=== PATIENT | male | born 1990 | race Caucasian/White ===

== ENCOUNTER 2020-01-20 18:49 | Emergency (ER) | payer BC, OTHER ==
[~2020-01-20] VITALS: Ht 160 cm; Wt 74.3 kg
--- OUTSIDE RECORDS SUMMARY | 2020-01-20 18:55 | XMS REPORT | Continuity of Care Document ---
Author Organization Unknown Address Unknown Phone Unavailable Allergies There is no data. Medications There is no data. Problems There is no data. Procedures There is no data. Results There is no data. Encounters ACCT No. Visit Date/Time Discharge Status Pt. Type Provider Facility Loc./Unit Complaint [id number] 01/09/2020 11:40:00 01/09/2020 23:59:5 9 CLS Outpatient SHARRON PERDOMO [facility]
[2020-01-20] MEDS ORDERED: RT-ALBUINH IH (19:10)
[2020-01-20] MEDS ORDERED: PRD20T PO (19:10)
--- NOTE | 2020-01-20 19:10 | ED Cough/URI ---
General Chief Complaint: Cough/Cold/Flu Symptoms Stated Complaint: COUGH Nursing Triage Note: Pt complaining of a cough that has been going on for a couple of weeks. Pt took Augmentin and finished it about a week ago. Sepsis Screen: No Definite Risk Source: patient Exam Limitations: no limitations History of Present Illness Date Seen by Provider: Jan 20, 2020 Time Seen by Provider: 19:00 Initial Comments coughing for 2.5 weeks, no fever, no body aches or chills. No recent travel or known exposure to anyone w Covid. Non-smoker, no Hx lung disease. Saw PCP 2 wks ago and given Rx for Amox w no effect, then seen again a wk later at outside clinic and given reassurance. Now, no worse, but still w occasional productive cough, only in the morning and sometimes coughs himself to sleep. Denies chest tightness or soa. Overall, improving. Allergies and Home Medications Home Medications Albuterol Sulfate 1 Puff Puff, 2 PUFF IH Q4H 1 PUFF = 90 MCG Prescribed by: RAGHAV LAZAR on 01/20/201909 Prednisone 20 Mg Tab, 40 MG PO am Prescribed by: RAGHAV LAZAR on 01/20/201909 Patient Home Medication List Home Medication List Reviewed: Yes Review of Systems Review of Systems Constitutional: see HPI; No chills, No diaphoresis, No dizziness, No fever, No malaise, No weakness EENTM: nose congestion (resolved); No ear pain, No throat pain Respiratory: see HPI, cough; No short of breath, No stridor, No wheezing Cardiovascular: see HPI; No chest pain Gastrointestinal: No abdominal pain, No loss of appetite, No nausea, No vomiting Musculoskeletal: No back pain, No joint pain Skin: No change in color, No rash Past Nefasef-Rqpluf-Tlovvz Hx Patient Social History Alcohol Use: Denies Use Recreational Drug Use: No Smoking Status: Never a Smoker 2nd Hand Smoke Exposure: No Recent Foreign Travel: No Contact w/Someone Who Travel: No Recent Infectious Disease Expo: No Recent Hopitalizations: No Physical Abuse: No Sexual Abuse: No Past Medical History Surgeries: Yes Orthopedic Respiratory: No Cardiac: No Neurological: No Genitourinary: No Gastrointestinal: No Musculoskeletal: No Endocrine: No HEENT: No Cancer: No Psychosocial: No Integumentary: No Physical Exam Vital Signs - First Documented 01/20/20 18:55 Temp 36.4 Pulse 87 Resp 16 B/P (MAP) 143/104 (117) Pulse Ox 98 O2 Delivery Room Air Capillary Refill : Less Than 3 Seconds Height: '" Weight: lbs. oz. kg; 29.00 BMI Method: General Appearance: WD/WN, no apparent distress HEENT: PERRL/EOMI, normal ENT inspection, TMs normal, pharynx normal Neck: non-tender, full range of motion, supple, normal inspection, carotid bruit Respiratory: chest non-tender, lungs clear, normal breath sounds Cardiovascular: regular rate, rhythm, no edema, no gallop Neurologic/Psychiatric: alert, normal mood/affect, oriented x 3 Skin: normal color, warm/dry Lymphatic: no adenopathy Progress/Results/Core Measures Suspected Sepsis Recent Fever Within 48 Hours: No Infection Criteria Present: None New/Unexplained Altered Menta: No Sepsis Screen: No Definite Risk SIRS Temperature: Pulse: 87 Respiratory Rate: 16 Blood Pressure 143 /104 Mean: 117 Results/Orders Vital Signs/I&O 01/20/20 18:55 Temp 36.4 Pulse 87 Resp 16 B/P (MAP) 143/104 (117) Pulse Ox 98 O2 Delivery Room Air Capillary Refill : Less Than 3 Seconds Blood Pressure Mean: 117 Departure Impression Primary Impression: Bronchitis Disposition: 01 HOME, SELF-CARE Condition: Stable Departure-Patient Inst. Decision time for Depature: 19:08 Patient Instructions: Acute Bronchitis, Adult (DC) Scripts Albuterol Sulfate (PROAIR HFA) 1 Puff Puff 2 PUFF IH Q4H, #1 PUFF 1 PUFF = 90 MCG Prov: RAGHAV LAZAR DO 01/20/20 Prednisone (Prednisone) 20 Mg Tab 40 MG PO am, #8 TAB 0 Refills Prov: RAGHAV LAZAR DO 01/20/20 RAGHAV LAZAR DO Jan 20, 2020 19:10
[2020-01-20 19:13] VITALS: BP 143/104
== END 2020-01-20 19:13 | disposition home or self-care (01) ==
LOC: ER FS 18:52
DX: J40 Bronchitis, not specified as acute or chronic (principal)
CPT/HCPCS: 99282

== ENCOUNTER 2020-01-29 14:59 | Emergency (ER) | payer BC ==
[~2020-01-29] VITALS: Ht 160 cm; Wt 72.7 kg
[~2020-01-29 14:59] MED LIST: PRD20T PO; RT-ALBUINH IH
--- OUTSIDE RECORDS SUMMARY | 2020-01-29 15:57 | XMS REPORT | Continuity of Care Document ---
Author Organization Unknown Address Unknown Phone Unavailable Allergies There is no data. Medications There is no data. Problems Date Dx Coded Attending Type Code Diagnosis Diagnosed By 01/23/2020 RAGHAV LAZAR DO Ot J40 BRONCHITIS, NOT SPECIFIED ACUTE OR CH 01/23/2020 ROVENSTINE DORAGHAV Ot R05 COUGH 01/23/2020 ROVENSTINE RAGHAV ALANIZ Ot J40 BRONCHITIS, NOT SPECIFIED ACUTE OR CH 01/23/2020 ROVENSTINE DO, RAGHAV Lewis Ot R05 COUGH Procedures There is no data. Results There is no data. Encounters ACCT No. Visit Date/Time Discharge Status Pt. Type Provider Facility Loc./Unit Complaint [id number] 01/09/2020 11:40:00 01/09/2020 23:59:5 9 C[facility] [id number] 01/20/2020 18:52:00 020 19:13:00 DIS Outpatient RAGHAV LAZAR DO Via [facility] ER FS COUGH [id number] 01/29/2020 15:00:[address] Emergency MARIBEL CRUZ DO Via [facility] ER FS FEVER; COUGH
--- NOTE | 2020-01-29 16:00 | ED Cough/URI ---
General Stated Complaint: FEVER; COUGH Source: patient Exam Limitations: no limitations History of Present Illness Date Seen by Provider: Jan 29, 2020 Time Seen by Provider: 15:55 Initial Comments 29-year-old male presents with fever, cough. Patient reports he got a fever today. His measured fever at the ER is 99.9. Along with cough. Patient reports that the cough to start today. However patient was seen by me about 9 days ago with similar symptoms. Patient did not have any chest pain, no shortness of breath no nausea vomiting diarrhea or any other systemic complaints. Patient is worried about "a virus going around" Allergies and Home Medications Allergies Coded Allergies: No Known Drug Allergies (Unverified , 01/29/20) Home Medications Albuterol Sulfate 1 Puff Puff, 2 PUFF IH Q4H 1 PUFF = 90 MCG Prescribed by: RAGHAV LAZAR on 01/20/201909 Prednisone 20 Mg Tab, 40 MG PO am Prescribed by: RAGHAV LAZAR on 01/20/201909 Patient Home Medication List Home Medication List Reviewed: Yes Review of Systems Review of Systems Constitutional: fever Respiratory: cough; No short of breath Cardiovascular: No chest pain Gastrointestinal: no symptoms reported Musculoskeletal: no symptoms reported Skin: no symptoms reported Psychiatric/Neurological: No Symptoms Reported Past Idfvcxf-Djivyb-Vkrukw Hx Past Med/Social Hx: Reviewed Nursing Past Med/Soc Hx Patient Social History 2nd Hand Smoke Exposure: No Recent Foreign Travel: No Contact w/Someone Who Travel: No Recent Hopitalizations: No Past Medical History Surgeries: Yes Orthopedic Respiratory: No Cardiac: No Neurological: No Genitourinary: No Gastrointestinal: No Musculoskeletal: No Endocrine: No HEENT: No Cancer: No Psychosocial: No Integumentary: No Physical Exam Vital Signs - First Documented 01/29/20 16:05 Temp 37.5 Pulse 119 Resp 20 B/P (MAP) 142/97 (112) Pulse Ox 98 O2 Delivery Room Air Capillary Refill : Height: '" Weight: lbs. oz. kg; 29.00 BMI Method: General Appearance: WD/WN, no apparent distress Neck: non-tender, full range of motion Respiratory: chest non-tender, lungs clear, normal breath sounds Cardiovascular: normal peripheral pulses, regular rate, rhythm Gastrointestinal: non tender, soft Neurologic/Psychiatric: alert, normal mood/affect Skin: normal color, warm/dry Progress/Results/Core Measures Suspected Sepsis SIRS Temperature: Pulse: Respiratory Rate: Laboratory Tests 01/29/20 16:20: White Blood Count 22.1H Blood Pressure / Mean: Laboratory Tests 01/29/20 16:20: Creatinine 0.78, Platelet Count 333, Total Bilirubin 0.3 Results/Orders Lab Results Laboratory Tests Test 01/29/20 16:10 01/29/20 16:20 Range/Units Group A Streptococcus Screen NEGATIVE NEGATIVE White Blood Count 22.1 H 4.3-11.0 10^3/uL Red Blood Count 4.63 4.35-5.85 10^6/uL Hemoglobin 14.3 13.3-17.7 G/DL Hematocrit 42 40-54 % Mean Corpuscular Volume 91 80-99 FL Mean Corpuscular Hemoglobin 31 25-34 PG Mean Corpuscular Hemoglobin Concent 34 32-36 G/DL Red Cell Distribution Width 14.2 10.0-14.5 % Platelet Count 333 130-400 10^3/uL Mean Platelet Volume 11.9 H 7.4-10.4 FL Neutrophils (%) (Auto) 74 42-75 % Lymphocytes (%) (Auto) 12 12-44 % Monocytes (%) (Auto) 11 0-12 % Eosinophils (%) (Auto) 2 0-10 % Basophils (%) (Auto) 0 0-10 % Neutrophils # (Auto) 16.4 H 1.8-7.8 X 10^3 Lymphocytes # (Auto) 2.7 1.0-4.0 X 10^3 Monocytes # (Auto) 2.4 H 0.0-1.0 X 10^3 Eosinophils # (Auto) 0.5 H 0.0-0.3 10^3/uL Basophils # (Auto) 0.1 0.0-0.1 10^3/uL Erythrocyte Sedimentation Rate 6 0-15 MM/HR D-Dimer 0.16 0.00-0.49 UG/ML Sodium Level 139 135-145 MMOL/L Potassium Level 4.5 3.6-5.0 MMOL/L Chloride Level 102 98-107 MMOL/L Carbon Dioxide Level 27 21-32 MMOL/L Anion Gap 10 5-14 MMOL/L Blood Urea Nitrogen 7 7-18 MG/DL Creatinine 0.78 0.60-1.30 MG/DL Estimat Glomerular Filtration Rate > 60 BUN/Creatinine Ratio 9 Glucose Level 99 70-105 MG/DL Calcium Level 9.2 8.5-10.1 MG/DL Corrected Calcium 8.9 8.5-10.1 MG/DL Total Bilirubin 0.3 0.1-1.0 MG/DL Aspartate Amino Transf (AST/SGOT) 21 5-34 U/L Alanine Aminotransferase (ALT/SGPT) 31 0-55 U/L Alkaline Phosphatase 61 40-136 U/L C-Reactive Protein 0.54 H <0.50 MG/DL Total Protein 7.4 6.4-8.2 GM/DL Albumin 4.4 3.2-4.5 GM/DL Micro Results Microbiology 01/29/20 Influenza Types A,B Antigen (SHERICE) - Final, Complete My Orders Orders - MARIBEL CRUZ DO Cbc With Automated Diff (01/29/20 16:10) Comprehensive Metabolic Panel (01/29/20 16:10) Ferritin (01/29/20 16:10) Fibrin Degradation Products (01/29/20 16:10) Procalcitonin (Pct) (01/29/20 16:10) Erythrocyte Sedimentation Rate (01/29/20 16:10) LDH (01/29/20 16:10) Influenza A And B Antigens (01/29/20 16:10) Liver Panel (01/29/20 16:10) Rapid Strep A Screen (01/29/20 16:10) Rsv Antigen (01/29/20 16:10) 2019 Coronavirus Sars-Cov-2 So (01/29/20 16:10) Chest 1 View Ap/Pa Only (01/29/20 16:10) Crp Fs (01/29/20 16:10) Manual Differential (01/29/20 16:20) Vital Signs/I&O 01/29/20 16:05 Temp 37.5 Pulse 119 Resp 20 B/P (MAP) 142/97 (112) Pulse Ox 98 O2 Delivery Room Air Capillary Refill : Progress Note : Time: 17:09 Progress Note Patient's x-ray shows some bilateral changes concerning for infiltrate. This is close to what we're seeing with a Covid 19 x-ray changes. I will start him on azithromycin due to the elevated white count and possible pneumonia. Patient is stable with stable oxygen in the upper 90s. He will be discharged home. He should return to the ER if he gets shortness of breath. Otherwise he will need to follow-up with primary care provider for outpatient management Diagnostic Imaging Diagonstic Imaging: Xray Plain Films/CT/US/NM/MRI: chest Comments [place] NAME: EZEQUIEL ALBARRAN [facility] REC#: [id number] PT STATUS: REG ER : 1990 PHYSICIAN: MARIBEL CRUZ DO ADMIT DATE: 01/29/20/ER FS Draft Date of Exam:01/29/20 CHEST 1 VIEW AP/PA ONLY EXAMINATION: Chest 1 view HISTORY: Fever and cough COMPARISON: None available. FINDINGS: There are vague airspace opacities in the lower lobes, left greater than right. No pleural effusion or pneumothorax. No edema. Heart size is normal. IMPRESSION: 1. Vague airspace opacities in both lower lobes, left greater than right concerning for infectious process, less likely atelectasis Departure Impression Primary Impression: Upper respiratory infection Qualified Codes: J06.9 - Acute upper respiratory infection, unspecified Disposition: HOME, SELF-CARE Condition: Stable Departure-Patient Inst. Patient Instructions: COVID19, Pneumonia, Adult (DC), Viral Upper Respiratory Infection, Adult (DC) Add. Discharge Instructions: Please follow [facility] and [place] Department of Health self isolation guidelines Tylenol and ibuprofen as needed for fever Follow-up with your primary care provider by phone call within 2-3 days. Please follow [facility] and [facility] health guidelines when to seek emergent medical care with current pandemic He should follow 14 days of quarantine guidelines due to cough and fever and tell your Covid 19 test results are back Emergency department focuses on treating and ruling out life-threatening diseases. Whenever possible, a diagnosis is given. However, most patients are given an impression based on their history, physical exam, and workup during your brief time in the ER. Information about probable diagnosis and other educational material has been provided. Please take the time to read and understand this information. It is very important that you follow up with a physician as discussed during the visit today. Failure to adhere to your follow-up instructions may lead to severe disability, injury, or so please make sure to keep your appointments or obtain one as requested. Please keep in mind the emergency department is not designed to your primary care or "family doctor" and nonurgent issues are best evaluated by an outpatient physician Scripts Azithromycin (Azithromycin) 250 Mg Tablet 250 MG PO UD, #6 TAB TAKE 2 TABLETS ON DAY ONE THEN TAKE 1 TABLET DAILY FOR FOUR MORE DAYS Prov: MARIBEL CRUZ DO 01/29/20 MARIBEL CRZU DO Jan 29, 2020 16:00
[2020-01-29 16:39] LABS: BASOPHILS # (AUTO) 0.1 10^3/uL (0.0-0.1); BASOPHILS % (AUTO) 0 % (0-10); EOSINOPHILS # (AUTO) 0.5 10^3/uL (0.0-0.3); EOSINOPHILS % (AUTO) 2 % (0-10); HEMATOCRIT 42 % (40-54); HEMOGLOBIN 14.3 G/DL (13.3-17.7); LYMPHOCYTES # (AUTO) 2.7 X 10^3 (1.0-4.0); LYMPHOCYTES % (AUTO) 12 % (12-44); MEAN CORPUSCULAR HEMOGLOBIN 31 PG (25-34); MEAN CORPUSCULAR HGB CONC 34 G/DL (32-36); MEAN CORPUSCULAR VOLUME 91 FL (80-99); MEAN PLATELET VOLUME 11.9 FL (7.4-10.4); MONOCYTES # (AUTO) 2.4 X 10^3 (0.0-1.0); MONOCYTES % (AUTO) 11 % (0-12); NEUTROPHILS # (AUTO) 16.4 X 10^3 (1.8-7.8); NEUTROPHILS % (AUTO) 74 % (42-75); PLATELET COUNT 333 10^3/uL (130-400); RED CELL DISTRIBUTION WIDTH 14.2 % (10.0-14.5); WHITE BLOOD COUNT 22.1 10^3/uL (4.3-11.0)
--- NOTE | 2020-01-29 16:44 | Diagnostic Imaging Report ---
EXAMINATION: Chest 1 view HISTORY: Fever and cough COMPARISON: None available. FINDINGS: There are vague airspace opacities in the lower lobes, left greater than right. No pleural effusion or pneumothorax. No edema. Heart size is normal. IMPRESSION: 1. Vague airspace opacities in both lower lobes, left greater than right concerning for infectious process, less likely atelectasis. Dictated by: Dictated on workstation # [id number]
[2020-01-29 16:55] LABS: ERYTHROCYTE SEDIMENTATION RATE 6 MM/HR (0-15)
[2020-01-29 17:03] LABS: BILIRUBIN,TOTAL 0.3 MG/DL (0.1-1.0); BUN/CREATININE RATIO 9; CALCIUM 9.2 MG/DL (8.5-10.1); CARBON DIOXIDE 27 MMOL/L (21-32); CHLORIDE 102 MMOL/L (98-107); CREATININE SERUM 0.78 MG/DL (0.60-1.30); GFR ESTIMATED > 60; GLUCOSE 99 MG/DL (70-105); POTASSIUM 4.5 MMOL/L (3.6-5.0); SODIUM 139 MMOL/L (135-145)
[2020-01-29 17:04] LABS: ALANINE AMINOTRANSFERASE 31 U/L (0-55); ALBUMIN 4.4 GM/DL (3.2-4.5); ALKALINE PHOSPHATASE 61 U/L (40-136); TOTAL PROTEIN 7.4 GM/DL (6.4-8.2)
[2020-01-29] MEDS ORDERED: AZIT250T12 PO (17:13)
[2020-01-29 17:16] LABS: BAND NEUTROPHILS 1 %; BASOPHILS % (MANUAL) 0 %; EOSINOPHILS % (MANUAL) 3 %; LYMPHOCYTES % (MANUAL) 17 %; MONOCYTES % (MANUAL) 12 %; NEUTROPHILS % (MANUAL) 67 %; RBC MORPH NORMAL
[2020-01-29 17:30] VITALS: BP 100/64
[2020-01-29 19:42] LABS: BILIRUBIN,DIRECT 0.1 MG/DL (0.0-0.3); BILIRUBIN,INDIRECT 0.2 MG/DL
== END 2020-01-29 17:30 | disposition home or self-care (01) ==
LOC: EDUNIT# 14:59 → ER FS 15:00
DX: J06.9 Acute upper respiratory infection, unspecified (principal)
CPT/HCPCS: 36415; 71045; 80053; 80076; 82248; 82728; 83615; 84145; 85007; 85027; 85379; 85652; 86141; 87430; 87635; 87804

== ENCOUNTER → 2020-12-23 | Outpatient (CLI) | payer BC ==
[~2020-12-23] MED LIST changes: +AZIT250T12 PO
== END ==
LOC: LAB FS 10:00
PROVIDERS: ATTEND Podiatrist
DX: Z01.812 Encounter for preprocedural laboratory examination (principal); Z20.822 Contact with and (suspected) exposure to COVID-19
CPT/HCPCS: 87635

== ENCOUNTER 2021-01-22 19:27 | Emergency (ER) | payer BC ==
[~2021-01-22] VITALS: Ht 160 cm; Wt 74.8 kg
--- NOTE | 2021-01-22 21:33 | ED Abdominal Pain ---
General Chief Complaint: Rect Problems Stated Complaint: BLOOD IN STOOL Nursing Triage Note: surgery on right 3/4 diarrhea x 2 weeks, bloody stool x 1 at 1830 today Sepsis Screen: Possible Severe Sepsis Risk Source of Information: Patient, Family Exam Limitations: No Limitations History of Present Illness Date Seen by Provider: Jan 22, 2021 Time Seen by Provider: 21:15 Initial Comments Patient is a 30-year-old male who presents to the emergency department tonight with a chief complaint of blood in his stool. Patient states that he has had d iarrhea off and on for 2 weeks that he states is somewhat dark. He had surgery on his right ankle/foot on December 26 and he tells me that after he was coming out of anesthesia he had an episode of vomiting that he was told "looked like coffee grounds". He was given a prescription for pantoprazole and he states he has been taking it only when his stomach feels queasy. He states he feels a little bit queasy today but denies abdominal pain specifically. He denies any recent cough congestion, URI symptoms. No vomiting that has persisted since surgery. He states that he has had no burning with urination. He states that he just had his ankle evaluated and the surgical sites have been healing normally per his surgeon. He only had the one episode of bloody stool tonight. All other review of systems reviewed and negative except as stated. Timing/Duration: 1 Day Severity/Quality: Mild Location: Generalized Abdomen ("Queasy") Radiation: No Radiation Activities at Onset: None Associated Symptoms: Denies Symptoms Allergies and Home Medications Allergies Coded Allergies: No Known Drug Allergies (Unverified , 01/29/20) Home Medications Albuterol Sulfate 1 Puff Puff, 2 PUFF IH Q4H 1 PUFF = 90 MCG Prescribed by: RAGHAV LAZAR on 01/20/201909 Azithromycin 250 Mg Tablet, 250 MG PO UD TAKE 2 TABLETS ON DAY ONE THEN TAKE 1 TABLET DAILY FOR FOUR MORE DAYS Prescribed by: MARIBEL CRUZ on 01/29/201712 Prednisone 20 Mg Tab, 40 MG PO am Prescribed by: RAGHAV LAZAR on 01/20/201909 Patient Home Medication List Home Medication List Reviewed: Yes Review of Systems Review of Systems Constitutional: see HPI EENTM: No Symptoms Reported Respiratory: No Symptoms Reported Cardiovascular: No Symptoms Reported Gastrointestinal: Blood Streaked Stools Genitourinary: No Symptoms Reported Musculoskeletal: no symptoms reported, other (Healing surgical wounds to the right ankle/foot currently in a short leg cast) Skin: no symptoms reported All Other Systems Reviewed Negative Unless Noted: Yes Past Hevpzkh-Tiluwh-Gaulox Hx Patient Social History 2nd Hand Smoke Exposure: No Recent Infectious Disease Expo: No Recent Hopitalizations: No Past Medical History Surgeries: Yes (spleen removal) Appendectomy, Orthopedic Respiratory: No Cardiac: No Neurological: No Genitourinary: No Gastrointestinal: No Musculoskeletal: No Endocrine: No HEENT: No Cancer: No Psychosocial: No Integumentary: No Physical Exam Vital Signs Vital Signs - First Documented 01/22/21 01/22/21 20:21 23:26 Temp 38.5 Pulse 131 Resp 20 B/P (MAP) 113/72 (86) Pulse Ox 97 O2 Delivery Room Air O2 Flow Rate 2.00 FiO2 99 Capillary Refill : Less Than 3 Seconds Height/Weight/BMI Height: '" Weight: lbs. oz. kg; 29.00 BMI Method: General Appearance: WD/WN, no apparent distress HEENT: PERRL/EOMI Respiratory: lungs clear, normal breath sounds, no respiratory distress, no ac cessory muscle use Cardiovascular: regular rate, rhythm, tachycardia Gastrointestinal: normal bowel sounds (Slightly hyperactive bowel sounds noted), soft; No tenderness Rectal: normal exam, normal rectal tone, heme positive stool (Trace heme positive on digital rectal exam), hemorrhoids (Tiny nonthrombosed external hemorrhoid visualized on rectal exam) Extremities: normal range of motion, normal inspection, other (Patient has a short leg cast in place to the right lower extremity) Neurologic/Psychiatric: alert, normal mood/affect, oriented x 3 Skin: normal color, warm/dry Focused Exam Lactate Level 01/22/21 21:37: Lactic Acid Level 1.72 Lactic Acid Level Laboratory Tests Test 01/22/21 21:37 Lactic Acid Level 1.72 MMOL/L (0.50-2.00) Progress/Results/Core Measures Results/Orders Lab Results Laboratory Tests Test 01/22/21 21:37 Range/Units White Blood Count 14.6 H 4.3-11.0 10^3/uL Red Blood Count 4.84 4.30-5.52 10^6/uL Hemoglobin 14.4 13.3-17.7 g/dL Hematocrit 42 40-54 % Mean Corpuscular Volume 87 80-99 fL Mean Corpuscular Hemoglobin 30 25-34 pg Mean Corpuscular Hemoglobin Concent 34 32-36 g/dL Red Cell Distribution Width 13.1 10.0-14.5 % Platelet Count 389 130-400 10^3/uL Mean Platelet Volume 12.6 H 9.0-12.2 fL Immature Granulocyte % (Auto) 0 % Neutrophils (%) (Auto) 32 L 42-75 % Lymphocytes (%) (Auto) 58 H 12-44 % Monocytes (%) (Auto) 7 0-12 % Eosinophils (%) (Auto) 1 0-10 % Basophils (%) (Auto) 1 0-10 % Neutrophils # (Auto) 4.7 1.8-7.8 10^3/uL Lymphocytes # (Auto) 8.5 H 1.0-4.0 10^3/uL Monocytes # (Auto) 1.1 H 0.0-1.0 10^3/uL Eosinophils # (Auto) 0.1 0.0-0.3 10^3/uL Basophils # (Auto) 0.2 H 0.0-0.1 10^3/uL Immature Granulocyte # (Auto) 0.1 0.0-0.1 10^3/uL Neutrophils % (Manual) 34 % Lymphocytes % (Manual) 13 % Monocytes % (Manual) 7 % Eosinophils % (Manual) 0 % Basophils % (Manual) 0 % Band Neutrophils 0 % Nucleated Red Blood Cells 1 Reactive Lymphocytes 45 % Blood Morphology Comment NORMAL Sodium Level 134 L 135-145 MMOL/L Potassium Level 3.4 L 3.6-5.0 MMOL/L Chloride Level 97 L 98-107 MMOL/L Carbon Dioxide Level 23 21-32 MMOL/L Anion Gap 14 5-14 MMOL/L Blood Urea Nitrogen 5 L 7-18 MG/DL Creatinine 0.88 0.60-1.30 MG/DL Estimat Glomerular Filtration Rate > 60 BUN/Creatinine Ratio 6 Glucose Level 103 70-105 MG/DL Lactic Acid Level 1.72 0.50-2.00 MMOL/L Calcium Level 8.8 8.5-10.1 MG/DL Corrected Calcium 9.0 8.5-10.1 MG/DL Total Bilirubin 0.4 0.1-1.0 MG/DL Aspartate Amino Transf (AST/SGOT) 29 5-34 U/L Alanine Aminotransferase (ALT/SGPT) 22 0-55 U/L Alkaline Phosphatase 63 40-136 U/L Total Protein 7.7 6.4-8.2 GM/DL Albumin 3.7 3.2-4.5 GM/DL My Orders Orders - KISHORE VIRAMONTES MD Cbc With Automated Diff (01/22/21 20:53) Comprehensive Metabolic Panel (01/22/21 20:53) Blood Culture (01/22/21 20:53) Ed Iv/Invasive Line Start (01/22/21 20:53) Ed Iv/Invasive Line Start (01/22/21 20:53) Vital Signs Adult Sepsis Patie Q15M (01/22/21 20:53) O2 (01/22/21 20:53) Remove Rings In Anticipation O (01/22/21 20:53) Lactic Acid Analyzer (01/22/21 20:53) Manual Differential (01/22/21 21:37) Ns Iv 1000 Ml (Sodium Chloride 0.9%) (01/22/21 22:45) Ct Abdomen/Pelvis W (01/22/21 22:35) Iohexol Injection (Omnipaque 350 Mg/Ml 1 (01/22/21 23:15) Received Contrast (Hold Metformin- Contr (01/22/21 23:15) Sodium Chloride Flush (Catheter Flush Sy (01/22/21 23:15) Ns (Ivpb) (Sodium Chloride 0.9% Ivpb Bag (01/22/21 23:15) Medications Given in ED Current Medications Medications Dose Ordered Sig/Cory Route Start Time Stop Time Status Last Admin Dose Admin Iohexol 100 ml ONCE ONCE IV 01/22/21 23:15 01/22/21 23:16 DC 01/22/21 23:11 92 ML Sodium Chloride 10 ml NEEDED PRN IV 01/22/21 23:15 01/22/21 23:12 10 ML Sodium Chloride 100 ml ONCE ONCE IV 01/22/21 23:15 01/22/21 23:16 DC 01/22/21 23:11 80 ML Vital Signs/I&O 01/22/21 01/22/21 20:21 23:26 Temp 38.5 Pulse 131 Resp 20 B/P (MAP) 113/72 (86) Pulse Ox 97 99 O2 Delivery Room Air Nasal Cannula O2 Flow Rate 2.00 FiO2 99 Blood Pressure Mean: 86 Progress Progress Note : Time: 00:14 Progress Note Patient has been resting comfortably throughout the duration of his ED stay. Labs reviewed, mild elevation in white blood cell count, comprehensive metabolic panel is within normal limits. Patient CT shows possible enteritis. I have explained to the patient that this does not rule out a possible ulcer in his stomach. He has pantoprazole and Zofran at home. I have recommended that he continue the pantoprazole daily instead of as needed. I will give the patient information for Dr. Mcgraw who is on-call for general surgery today for possible endoscopy. I have given him good return precautions which include if he has abdominal pain, vomiting coffee-ground, passing more blood in his stool especially associated with fever that he come back to the emergency department for reevaluation. He verbalizes understanding, as does his who is at the bedside, all questions were sought and answered. Patient is stable for disc harge. Diagnostic Imaging Diagonstic Imaging: CT Plain Films/CT/US/NM/MRI: abdomen Comments CT abdomen and pelvis showed fluid present in multiple loops of small bowel which is nonspecific, however can be seen in enteritis. No other acute findings. Departure Impression Primary Impression: Abdominal pain Qualified Codes: R10.84 - Generalized abdominal pain Additional Impressions: Enteritis Hematochezia Disposition: 01 HOME, SELF-CARE Condition: Stable Departure-Patient Inst. Decision time for Depature: 00:16 Referrals: OMID MCGRAW DO NO,LOCAL PHYSICIAN (PCP) Primary Care Physician Patient Instructions: Stomach Ache and Stomach Upset Add. Discharge Instructions: Please drink plenty of fluids to stay well-hydrated. Continue your pantoprazole on a daily basis. Use the nausea medications you have at home every 8 hours as needed. Please follow-up with Dr. Mcgraw, general surgery for possible endoscopy to rule out an ulcer in your stomach. Come back to the emergency department for any increased symptoms of abdominal pain, nausea, passing blood in your stool or vomiting blood/"coffee grounds". KISHORE VIRAMONTES MD Jan 22, 2021 21:33
[2021-01-22 22:06] LABS: BASOPHILS # (AUTO) 0.2 10^3/uL (0.0-0.1); BASOPHILS % (AUTO) 1 % (0-10); EOSINOPHILS % (AUTO) 1 % (0-10); HEMOGLOBIN 14.4 g/dL (13.3-17.7); MEAN CORPUSCULAR HEMOGLOBIN 30 pg (25-34)
[2021-01-22 22:08] LABS: EOSINOPHILS # (AUTO) 0.1 10^3/uL (0.0-0.3); HEMATOCRIT 42 % (40-54); LYMPHOCYTES # (AUTO) 8.5 10^3/uL (1.0-4.0); LYMPHOCYTES % (AUTO) 58 % (12-44); MEAN CORPUSCULAR HGB CONC 34 g/dL (32-36); MEAN CORPUSCULAR VOLUME 87 fL (80-99); MEAN PLATELET VOLUME 12.6 fL (9.0-12.2); MONOCYTES # (AUTO) 1.1 10^3/uL (0.0-1.0); MONOCYTES % (AUTO) 7 % (0-12); NEUTROPHILS # (AUTO) 4.7 10^3/uL (1.8-7.8); NEUTROPHILS % (AUTO) 32 % (42-75); PLATELET COUNT 389 10^3/uL (130-400); WHITE BLOOD COUNT 14.6 10^3/uL (4.3-11.0)
[2021-01-22 22:10] LABS: ALANINE AMINOTRANSFERASE 22 U/L (0-55); ALBUMIN 3.7 GM/DL (3.2-4.5); ALKALINE PHOSPHATASE 63 U/L (40-136); BILIRUBIN,TOTAL 0.4 MG/DL (0.1-1.0); BUN/CREATININE RATIO 6; CALCIUM 8.8 MG/DL (8.5-10.1); CARBON DIOXIDE 23 MMOL/L (21-32); CHLORIDE 97 MMOL/L (98-107); CREATININE SERUM 0.88 MG/DL (0.60-1.30); GFR ESTIMATED > 60; GLUCOSE 103 MG/DL (70-105); POTASSIUM 3.4 MMOL/L (3.6-5.0); SODIUM 134 MMOL/L (135-145); TOTAL PROTEIN 7.7 GM/DL (6.4-8.2)
[2021-01-22 22:37] LABS: BAND NEUTROPHILS 0 %; BASOPHILS % (MANUAL) 0 %; EOSINOPHILS % (MANUAL) 0 %; LYMPHOCYTES % (MANUAL) 13 %; MONOCYTES % (MANUAL) 7 %; NEUTROPHILS % (MANUAL) 34 %; NUCLEATED RED BLOOD CELLS 1; RBC MORPH NORMAL; REACTIVE LYMPHOCYTES 45 %
[2021-01-22] MEDS ORDERED: NS IV 1000 ML 1,000 ML IV SCH (22:45)
[2021-01-22] MEDS ORDERED: IOHEXOL 350 MG/ML 100 ML (OMNIPAQUE 350) VIAL IV ONE (23:15)
[2021-01-22] MEDS ORDERED: NS 100 ML (IVPB) BAG IV ONE (23:15)
[2021-01-22] MEDS ORDERED: CATHETER FLUSH 10 ML SYR IV PRN (23:15)
[2021-01-22] MEDS ORDERED: HOLD METFORMIN - RECEIVED CONTRAST 20 ML VIAL IV SCH (23:15)
[2021-01-23 00:30] VITALS: BP 119/73
--- NOTE | 2021-01-23 07:02 | Diagnostic Imaging Report ---
PROCEDURE: CT abdomen and pelvis with contrast. TECHNIQUE: Multiple contiguous axial images were obtained through the abdomen and pelvis after administration of intravenous contrast. Auto Exposure Controls were utilized during the CT exam to meet ALARA standards for radiation dose reduction. All CT scans use one or more of the following dose optimizing techniques: automated exposure control, MA and/or KvP adjustment based on patient size and exam type or iterative reconstruction. INDICATION: Abdominal pain. FINDINGS: The heart size is normal. Lung bases are clear. Liver is normal in size without focal lesions. Gallbladder is unremarkable. There is no biliary duct dilatation. 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 The pancreas and adrenal glands are unremarkable. Kidneys are normal in appearance. Aorta is nonaneurysmal. The bowel gas pattern is nonspecific. There is some minimal fluid within the small bowel. There is no free air. There is no ascites. There are no focal inflammatory changes. Bladder is normal. There is no pelvic mass, adenopathy or free fluid. IMPRESSION: Fluid present in multiple loops of small bowel which is nonspecific, however may reflect enteritis. Recommend clinical correlation. No other acute abnormality in the abdomen or pelvis. Dictated by: Dictated on workstation # [id number]
== END 2021-01-23 00:26 | disposition home or self-care (01) ==
LOC: EDUNIT# 19:27 → ER 19:29
DX: K52.9 Noninfective gastroenteritis and colitis, unspecified (principal); Z79.52 Long term (current) use of systemic steroids; Z98.890 Other specified postprocedural states
CPT/HCPCS: 36415; 74177; 80053; 83605; 85007; 85027; 87040

== ENCOUNTER → 2021-02-19 | Outpatient (CLI) | payer BC | LOC: LAB FS 10:00 | PROVIDERS: ATTEND Podiatrist | DX: Z01.812 Encounter for preprocedural laboratory examination (principal); Z20.822 Contact with and (suspected) exposure to COVID-19 | CPT/HCPCS: 87635 ==

== ENCOUNTER → 2022-02-20 | Outpatient (CLI) | payer SELFPAY | LOC: LAB 09:56 | PROVIDERS: ATTEND Obstetrics & Gynecology | DX: N46.9 Male infertility, unspecified (principal) | CPT/HCPCS: 89320 ==